=== PATIENT | female | born 1960 | race American Indian/Alaskan Native ===

== ENCOUNTER 2016-08-02 11:13 | Emergency (ER) | payer SELFPAY ==
[2016-08-02] MEDS ORDERED: BABY ASPIRIN PO ONE (11:48)
[2016-08-02 11:59] LABS: Basophils % (Auto) 0.8 % (0.0-1.8); Eosinophils % (Auto) 0.9 % (0.0-4.3); Hematocrit 43.6 % (30.3-42.9); Hemoglobin 14.4 gm/dl (10.1-14.3); Mean Corpuscular HGB Conc 33 % (30-34); Mean Corpuscular Hemoglobin 30 pg (28-32); Mean Corpuscular Volume 90 fl (79-97); Platelet Count 386 K/mm3 (140-440); Red Blood Count 4.84 M/mm3 (3.65-5.03); Red Cell Distribution Width 13.6 % (13.2-15.2); White Blood Count 7.2 K/mm3 (4.5-11.0)
[2016-08-02 12:13] LABS: Anion Gap 17 mmol/L; BUN/Creatinine Ratio 15.45; Blood Urea Nitrogen 17 mg/dL (7-17); Calcium 8.9 mg/dL (8.4-10.2); Carbon Dioxide 25 mmol/L (22-30); Chloride 102.6 mmol/L (98-107); Glucose 225 mg/dL (65-100); Potassium 3.8 mmol/L (3.6-5.0); Sodium 141 mmol/L (137-145)
[2016-08-02 12:20] LABS: Urine Drugs of Abuse Note Disclamer
[2016-08-02 12:30] LABS: Bacteria,Urine 1+ /HPF (Negative); Bilirubin,Urine NEG (Negative); Blood,Urine NEG (Negative); Ketones,Urine TR mg/dL (Negative); Leukocyte Esterase,Urine NEG (Negative); Mucus,Urine 2+ /HPF; Nitrite,Urine NEG (Negative)
--- NOTE | 2016-08-02 12:57 | XRay Report ---
CHEST 2 VIEWS INDICATION: Heart failure. COMPARISON: 11/16/2015. FINDINGS: PA and lateral chest radiographs demonstrate normal cardiomediastinal silhouette. Clear lungs. Intact bones. CONCLUSION: No acute disease in the chest. Thank you for the opportunity to participate in this patient's care.
--- NOTE | 2016-08-02 15:00 | Emergency Department Report ---
ED Chest Pain HPI - General Chief Complaint: Chest Pain Stated Complaint: CHEST PAIN Time Seen by Provider: 08/02/16 11:47 Source: patient Mode of arrival: Ambulatory Limitations: No Limitations - History of Present Illness MD Complaint: chest pain -: Gradual, days(s) Onset: associated with drug use Pain Location: substernal Pain Radiation: none Severity: mild Severity scale (0 -10): 2 Quality: aching Consistency: intermittent Improves With: nothing Worsens With: nothing, other re: denies: nausea, vomting, diaphoresis, dyspnea, sense of impending doom Other Symptoms: denies: cough, fever, syncope, rash, acid taste in mouth, leg swelling, palpitations, burping - Related Data Previous Rx's Medication Instructions Recorded Last Taken Type Aspirin [Adult Low Dose Aspirin EC] 81 mg PO DAILY #30 tablet. 11/17/15 Unknown Rx Losartan/Hydrochlorothiazide 1 each PO DAILY #30 tablet 11/17/15 Unknown Rx [Losartan-Hctz 50-12.5 mg Tab] Cyclobenzaprine HCl [Flexeril 5 MG 5 mg PO Q8HR PRN #10 tab 01/17/16 Unknown Rx TAB] Ondansetron [Zofran TAB] 4 mg PO Q8HR PRN #14 tablet 01/17/16 Unknown Rx Allergies Allergy/AdvReac Type Severity Reaction Status Date / Time No Known Allergies Allergy Verified 11/13/15 08:39 Heart Score - HEART Score History: Slightly suspicious EKG: Normal Age: 45-65 Risk factors: 1-2 risk factors Troponin: < normal limit HEART Score: 2 ED Review of Systems ROS: Stated complaint: CHEST PAIN Other details as noted in HPI Other: GENERAL: No weight change, fatigue, weakness, fever, chills, or night sweats SKIN: No changes in skin or hair, no itching, no rashes, no jaundice HEAD: No trauma, headache, or visual changes EYES: No blurriness, tearing, itching, acute visual loss, conjunctival discoloration, or scleral icterus EARS: No hearing loss, tinnitus, vertigo, or earache NOSE: No rhinorrhea, stuffiness, sneezing, itching, or epistaxis MOUTH: No bleeding gums, hoarseness, sore throat, or swelling CARDIAC: chest pain RESPIRATORY: No shortness of breath, wheeze, cough, sputum production, hemoptysis, pneumonia, asthma, bronchitis, or emphysema GI: No change in appetite, nausea, vomiting, dysphagia, change in bowel frequency, diarrhea, constipation, bleeding, hematemesis, melena, hematochezia, or abdominal pain URINARY: No frequency, urgency, polyuria, dysuria, hematuria, or incontinence MUSCULOSKELETAL: No muscle weakness, joint stiffness, decrease in range of motion, redness, swelling, tenderness NEUROLOGIC: No loss of sensation, numbness, tingling, tremors, weakness, paralysis, seizures HEMATOLOGIC: No anemia, easy bruising, bleeding, petechiae, or purpura ENDOCRINE: No hot or cold intolerance, sweating, polyuria, polydipsia or, polyphagia no thyroid problems PSYCHIATRIC: patient requesting evaluation for detox from drugs ED Past Medical Hx - Past Medical History Hx Hypertension: Yes Hx Congestive Heart Failure: No Hx Diabetes: No Hx Psychiatric Treatment: Yes (Bipolar) Hx Asthma: No Hx COPD: No - Surgical History Past Surgical History?: No - Social History Smoking Status: Current Every Day Smoker Substance Use Type: Alcohol, Cocaine - Medications Home Medications: Home Medications Medication Instructions Recorded Confirmed Last Taken Type Aspirin [Adult Low Dose Aspirin EC] 81 mg PO DAILY #30 tablet. 11/17/15 Unknown Rx Losartan/Hydrochlorothiazide 1 each PO DAILY #30 tablet 11/17/15 Unknown Rx [Losartan-Hctz 50-12.5 mg Tab] Cyclobenzaprine HCl [Flexeril 5 MG 5 mg PO Q8HR PRN #10 tab 01/17/16 Unknown Rx TAB] Ondansetron [Zofran TAB] 4 mg PO Q8HR PRN #14 tablet 01/17/16 Unknown Rx ED Physical Exam - General Limitations: No Limitations - Other Other exam information: GENERAL: Patient in no acute distress HEAD: Normocephalic, atraumatic EYES: PERRLA, EOM intact, no scleral icterus, no papilledema, no conjunctival hemorrhage, visual pickett and acuity wnl, NOSE: No tenderness, discharge, sinus tenderness MOUTH: No erythema, bleeding, exudate HEART: Regular rate and rhythm, no murmur, S1-S2 are auscultated, pulses are symmetric LUNGS: No wheezing, rales, rhonchi, bilateral breath sounds ABDOMEN: Normal bowel sounds, no tenderness, no rebound, no guarding, no masses , no CVA tenderness MUSCULOSKELETAL: Normal joint range of motion, no redness, no swelling, no tenderness NEUROLOGIC: GCS 15, Alert and Oriented x3, Cranial nerves intact, normal sensation, normal strength, normal gait, no cerebellar deficit PSYCHIATRIC: No homicidal or suicidal ideation, no anxiety, no depression, no hallucinations. Patient requesting help with detox from drugs SKIN: Skin is warm and dry, no wounds, no rashes ED Course Vital Signs 08/02/16 08/02/16 08/02/16 11:25 12:08 12:10 Temperature 97.8 F Pulse Rate 99 H Respiratory 18 Rate Blood Pressure 151/90 151/86 O2 Sat by Pulse 97 99 97 Oximetry 08/02/16 08/02/16 08/02/16 12:20 12:30 12:40 Temperature Pulse Rate Respiratory Rate Blood Pressure 151/86 148/89 148/89 O2 Sat by Pulse 99 99 98 Oximetry 08/02/16 08/02/16 08/02/16 12:50 12:51 13:00 Temperature Pulse Rate Respiratory 18 Rate Blood Pressure 151/86 158/90 O2 Sat by Pulse 98 100 97 Oximetry MIRIAM score - Miriam Score Age > 65: (0) No Aspirin use within the Past 7 Days: (0) No 3 or more CAD Risk Factors: (0) No 2 or more Angina events in past 24 hrs: (0) No Known CAD with more than 50% Stenosis: (0) No Elevated Cardiac Markers: (0) No ST Deviation Greater than 0.5mm: (0) No MIRIAM Score: 0 ED Medical Decision Making - Lab Data Result diagrams: 08/02/16 11:41 08/02/16 11:41 - EKG Data Interpretation: no acute changes - Radiology Data Radiology results: report reviewed - Medical Decision Making Upon discharge patient reports that she has SI, and that she would like help with withdrawal from polysubstance abuse. Patient medically clear. Awaiting mental health evaluation. Critical care attestation.: If time is entered above; I have spent that time in minutes in the direct care of this critically ill patient, excluding procedure time. ED Disposition Clinical Impression: Polysubstance abuse, Suicidal ideation Chest pain Qualifiers: Chest pain type: unspecified Qualified Code(s): R07.9 - Chest pain, unspecified Disposition: [id number] ANOTHER TYPE HLTHCARE Is pt being admited?: No Condition: Stable Instructions: Chest Pain (ED), Polysubstance Abuse (ED), Depression (ED) Referrals: PRIMARY MD TAMMY [Primary Care Provider] - 3-5 Days RONALD HUYNH MD [Staff Physician] - 2-3 Days Time of Disposition: 16:15
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
[2016-08-03] MEDS ORDERED: ZOLOFT PO SCH (18:30)
[2016-08-03] MEDS ORDERED: NON-FORMULARY (Abacavir/Dolutegravir/Lamivudi [Triumeq Tablet] 1 EACH) PO SCH (19:00)
[2016-08-03] MEDS ORDERED: VISTARIL PO SCH (20:00)
[2016-08-03] MEDS ORDERED: EPIVIR PO SCH (22:00)
[2016-08-03] MEDS ORDERED: PREMARIN PO SCH (22:00)
[2016-08-03] MEDS ORDERED: ZIAGEN PO SCH (22:00)
[2016-08-03] MEDS ORDERED: TIVICAY (NF) PO SCH (22:00)
[2016-08-03 23:06] VITALS: BP 152/80
== END 2016-08-04 02:30 | disposition other institution (70) ==
LOC: ED 11:13
DX: R45.851 Suicidal ideations (principal); R07.2 Precordial pain; F19.10 Other psychoactive substance abuse, uncomplicated; I10 Essential (primary) hypertension; F31.9 Bipolar disorder, unspecified; F17.200 Nicotine dependence, unspecified, uncomplicated; F14.10 Cocaine abuse, uncomplicated
CPT/HCPCS: 36415; 71020; 80048; 80307; 81001; 84484; 85025; 85379; 93005; 93010; 99285; G0480; 80320; Q0177